=== PATIENT | male | born 1965 | race African-American/Black ===

== ENCOUNTER 2021-12-16 13:58 | Inpatient (IN) | payer OTHER ==
[2021-12-16] MEDS ORDERED: DICYCLOMINE HCL 10 MG CAPSULE PO PRN (15:50)
[2021-12-16] MEDS ORDERED: MAGNESIUM CITRATE 300 ML BOTTLE PO PRN (15:50)
[2021-12-16] MEDS ORDERED: ACETAMINOPHEN 325 MG TABLET (FP) PO PRN ×2 (15:50)
[2021-12-16] MEDS ORDERED: METHOCARBAMOL 500 MG TABLET PO PRN (15:50)
[2021-12-16] MEDS ORDERED: BENZOCAINE/MENTHOL (CHLORASEPTIC ) LOZENGE MM PRN (15:50)
[2021-12-16] MEDS ORDERED: BISMUTH SUBSALICYLATE 524 MG/30 ML PO PRN (15:50)
[2021-12-16] MEDS ORDERED: IBUPROFEN 400 MG TABLET (FP) PO PRN (15:50)
[2021-12-16] MEDS ORDERED: ONDANSETRON *ODT* 4 MG TABLET SL PRN (15:50)
[2021-12-16] MEDS ORDERED: NICOTINE 10 MG CARTRIDGE (INHALER) IH PRN (15:50)
[2021-12-16] MEDS ORDERED: LOPERAMIDE HCL 2 MG CAPSULE PO PRN (15:50)
[2021-12-16] MEDS ORDERED: MAG HYDROX/AL HYDROX/SIMETH 30 ML UNIT-DOSE CUP PO PRN (15:50)
[2021-12-16] MEDS ORDERED: MAGNESIUM HYDROX 2400MG/30ML ORAL SUSPENSION 30 ML CUP PO PRN (15:50)
[2021-12-16 18:01] VITALS: BMI 24.5
[2021-12-16] MEDS: PRENATAL VITAMINS W/ FOLIC ACID TABLET (FP) PO SCH (22:20)
[2021-12-16] MEDS: hydrOXYzine PAMOATE 25 MG CAPSULE (FP) PO SCH ×2 (22:21→23:22)
[2021-12-16] MEDS: MELATONIN 5 MG TABLETS PO SCH (23:22)
[2021-12-16] MEDS: THIAMINE HCL 100 MG TABLET (FP) PO SCH (23:22)
[2021-12-17] MEDS: hydrOXYzine PAMOATE 25 MG CAPSULE (FP) PO SCH ×5 (06:13→23:52)
[2021-12-17] MEDS: PRENATAL VITAMINS W/ FOLIC ACID TABLET (FP) PO SCH (10:52)
[2021-12-17] MEDS ORDERED: HYDROCHLOROTHIAZIDE 25 MG TABLET (FP) PO SCH (12:00)
[2021-12-17] MEDS: FAMOTIDINE 20 MG TABLET PO SCH ×2 (13:14→23:52)
[2021-12-17 13:54] LABS: HEMATOCRIT 38.2 % (35.4-49); HEMOGLOBIN 12.4 GM/dL (11.7-16.9); MCH 29.9 pg (25.7-33.7); MCHC 32.5 g/dl (32.0-35.9); MEAN CELL VOLUME 91.9 fl (80-96); MEAN PLT VOLUME 10.6 fl (7.5-11.1); PLATELET COUNT 192 10^3/uL (134-434); RBC 4.15 M/mm3 (4.00-5.60); RDW 15.9 % (11.9-15.9); WHITE BLOOD COUNT 5.8 K/mm3 (4.0-10.0)
[2021-12-17 14:12] LABS: CALCIUM 8.5 mg/dL (8.5-10.1)
[2021-12-17 14:13] LABS: BLOOD UREA NITROGEN 16.2 mg/dL (7-18)
[2021-12-17 14:17] LABS: BILIRUBIN,TOTAL 0.7 mg/dL (0.2-1)
[2021-12-17 14:18] LABS: TOT PROT 5.8 g/dl (6.4-8.2)
[2021-12-17 15:09] LABS: HIV INTERPRETATION NEGATIVE (NEGATIVE)
[2021-12-17 22:07] VITALS: TEMP 97.7
[2021-12-17] MEDS: THIAMINE HCL 100 MG TABLET (FP) PO SCH (23:52)
[2021-12-17] MEDS: MELATONIN 5 MG TABLETS PO SCH (23:52)
[2021-12-18] MEDS: hydrOXYzine PAMOATE 25 MG CAPSULE (FP) PO SCH (06:55)
[2021-12-18 07:27] VITALS: BP 139/89; PULSE 60
[2021-12-18 14:09] LABS: SARS-CoV-2 NAA Not Detected (Not Detected)
== END 2021-12-18 09:15 | disposition home or self-care (01) | DRG 774 ==
LOC: YASAS 13:58 → Y6N 17:19
PROVIDERS: ADMIT Allergy & Immunology; ATTEND Surgery
PROC: HZ2ZZZZ Detoxification Services for Substance Abuse Treatment (ICD-10-PCS; principal; 2021-12-16)
DX: F10.230 Alcohol dependence with withdrawal, uncomplicated (principal); F14.20 Cocaine dependence, uncomplicated; F12.20 Cannabis dependence, uncomplicated; F17.210 Nicotine dependence, cigarettes, uncomplicated; F41.8 Other specified anxiety disorders; F32.A Depression, unspecified; F20.9 Schizophrenia, unspecified; R76.8 Other specified abnormal immunological findings in serum
CPT/HCPCS: 36415; 80053; 85027; 86593; 86780; 87389; 93005; 93010; C9803-CS; U0003; U0005